=== PATIENT | female | born 1990 | race African-American/Black ===

== ENCOUNTER 2016-08-01 16:44 | Emergency (ER) | payer MEDICAID, OTHER ==
[~2016-08-01] VITALS: Ht 160 cm; Wt 52.6 kg
[2016-08-01 17:05] VITALS: BP 111/78
[2016-08-01 17:21] LABS: APPEARANCE,URINE CLEAR; KETONES,URINE NEGATIVE (NEGATIVE); LEUKOCYTE ESTERASE ,URINE NEGATIVE (NEGATIVE); NITRITE,URINE NEGATIVE (NEGATIVE); PH,URINE 6 (4.5-8.0); PROTEIN,URINE NEGATIVE (NEGATIVE); UROBILINOGEN,URINE NORMAL MG/DL (0.0-1.0)
[2016-08-01] MEDS ORDERED: MIRALAX119 GM PO (17:54)
[2016-08-01] MEDS ORDERED: METAMUCIL660 GM PO (17:54)
[2016-08-01] MEDS ORDERED: ANECREAM5 GM TP (17:54)
[2016-08-01 17:58] VITALS: BP 111/78
--- NOTE | 2016-08-01 20:40 | Emergency Room Report ---
History of Present Illness General Chief Complaint: Pain Source: Patient (SHAUN RAYO) Present Illness HPI The patient is a 18-year-old female presenting for 6 months of intermittent constipation. The patient states that she has 1-2 painful bowel movements a week. The patient has also noticed bright red blood on toilet paper. The patient denies any abdominal pain but does admit to 10/10 sharp rectal pain which occurs only with defecation. The patient has not tried any medications for this. The patient has not changed her diet. She denies any other symptoms including N, V, F, chills dysuria, flank pain (SHAUN RAYO.[email or web address]) Allergies: Coded Allergies: No Known Allergies (Unverified , 08/01/16) Patient History Past Medical History: see triage record Pertinent Family History: none Last Menstrual Period: 2016 Now: No Reviewed Nursing Documentation: PMH: Agreed, PSxH: Agreed (SHAUN RAYO) Nursing Documentation-PMH Past Medical History: No Stated History (SHAUN RAYO) Review of Systems All Other Systems: negative except mentioned in HPI (SHAUN RAYO.AJoe) Physical Exam Vital Signs Date Time Temp Pulse Resp B/P Pulse Ox O2 Delivery O2 Flow Rate FiO2 08/01/16 16:56 98.2 98 16 111/78 100 Room Air Sp02 EP Interpretation: reviewed, normal General Appearance: no apparent distress, alert, GCS 15, non-toxic Head: normocephalic, atraumatic Eyes: bilateral eye PERRL, bilateral eye normal inspection ENT: hearing grossly normal, normal pharynx, no angioedema, normal voice Neck: full range of motion, supple/symm/no masses Gastrointestinal: normal bowel sounds, non tender, soft, non-distended, no guarding, no rebound Rectal: normal exam Genitourinary: normal inspection, no CVA tenderness Musculoskeletal: back normal, gait/station normal, normal range of motion, non- tender Neurologic: alert, oriented x3, responsive, motor strength/tone normal, sensory intact, speech normal Psychiatric: judgement/insight normal, memory normal, mood/affect normal, no suicidal/homicidal ideation Skin: normal color, no rash, warm/dry, well hydrated Lymphatic: no adenopathy (SHAUN RAYO) Medical Decision Making PA Attestation Dr. aJime is my supervising physician. Patient management was discussed with my supervising physician (SHAUN RAYO) Diagnostic Impression: Primary Impression: Hemorrhoid Additional Impression: Constipation ER Course The patient is a 18-year-old female presenting for 6 months of intermittent constipation. Differential diagnoses considered but not limited to: Constipation, gastroenteritis, hemorrhoids, ulcerative colitis, Crohn disease PE: Vitals WNL. NAD. Abdomen: Normal appearance. Non distended. No ecchymosis. Normal BS. Non TTP. No McBurney point tenderness. No guarding. No CVA tenderness The patient is given dietary instructions and a prescription for MiraLAX, Metamucil, and topical lidocaine if hemorrhoids occur. The patient will take in plenty of fluids. Patient will follow up with PMD ER precautions are given (SHAUN RAYO) ER Course I evaluated this patient in the ED at [facility] with my advanced practice provider (Physician Sock Lining Examiner) colleague, who practices under my general supervision. My impressions concur with the advanced practice provider in regards to their obtained history of present illness, physical exam, general management, diagnosis, and disposition. In particular, I agree with PA-obtained interpretation of imaging, rhythm strip. For the evening and overnight shifts, we do not have the benefit of an in-house Radiologist to review xrays so our interpretation may be limited. Patients are to be discharged only with normal vital signs (or if we discussed a particular exception), a plan for follow-up care, and understand to return to the ED for worsening symptoms. Please see midlevel healthcare providers note for further details. (SHAWN JAIME M.D.) Last Vital Signs Date Time Temp Pulse Resp B/P Pulse Ox O2 Delivery O2 Flow Rate FiO2 08/01/16 17:58 98.2 98 16 111/78 100 Room Air Status: improved (SHAUN RAYO.[email or web address]) Disposition: HOME, SELF-CARE Condition: Improved Scripts Lidocaine (ANECREAM) 5 Gm Cream..g. 1 GM TP TID Y for For Pain, #5 GM Prov: SHAUN RAYO P.A. 08/01/16 Psyllium Husk (Metamucil) 660 Gm Powder 1 SCOOP PO DAILY, #660 GM Prov: SHAUN RAYO 08/01/16 Polyethylene Glycol 3350 (MIRALAX) 119 Gm Powder 17 GM PO DAILY, #119 GM Prov: SHAUN RAYO 08/01/16 Referrals: [employer] [facility],REFERRIN (PCP) Patient Instructions: Constipation, Adult, Hemorrhoids Additional Instructions: I discussed my findings with the patient. All questions and concerns have been answered. Treatment and medication compliance have been addressed. I advised the patient that they need to follow up with PMD in 3-5 days. Return to ED if symptoms worsen, new symptoms arise, or if needed for any reason. Patient verbalized understanding of discharge instructions. SHAUN RAYO Aug 01, 2016 20:40 SHAWN JAIME M.D. Aug 02, 2016 14:31
== END 2016-08-01 18:09 | disposition home or self-care (01) ==
LOC: EMR 17:05
DX: K59.00 Constipation, unspecified (principal); K64.9 Unspecified hemorrhoids
CPT/HCPCS: 81003; 81025; 99284